=== PATIENT | male | born 2000 | race Caucasian/White ===

== ENCOUNTER → 2023-08-28 | Outpatient (CLI) | payer OTHER | LOC: MHCPAIN 08:15 | DX: M54.16 Radiculopathy, lumbar region (principal) ==

== ENCOUNTER → 2023-09-17 | Outpatient (CLI) | payer OTHER | LOC: MHCPAIN 09:18 | DX: M51.26 Other intervertebral disc displacement, lumbar region (principal); M48.061 Spinal stenosis, lumbar region without neurogenic claudication; M54.16 Radiculopathy, lumbar region | CPT/HCPCS: G0463 ==

== ENCOUNTER → 2023-10-15 | Outpatient (CLI) | payer OTHER | LOC: MHCPAIN 08:32 | DX: M51.26 Other intervertebral disc displacement, lumbar region (principal); M48.061 Spinal stenosis, lumbar region without neurogenic claudication | CPT/HCPCS: G0463 ==